=== PATIENT | female | born 1995 | race Caucasian/White ===

== ENCOUNTER 2021-09-09 04:00 | Inpatient (IN) ==
[2021-09-10] MEDS ORDERED: Famotidine 20 MG/2 ML VIAL IVP PRN (04:16)
[2021-09-10] MEDS ORDERED: Metoclopramide 10 MG/2 ML VIAL IVP PRN (04:16)
[2021-09-10] MEDS ORDERED: Ringers Solution, Lactated 1,000 ML IVC SCH (04:30)
[2021-09-10] MEDS: Oxytocin 20 units/ LR 1000 mL 20 UNIT/1,000 ML BAG IVC SCH ×2 (05:01→17:33)
[2021-09-10 07:05] LABS: Basophils % 0.4 %; Eosinophils % 0.4 %; Hematocrit 40.1 % (35.3-44.9); Hemoglobin 12.8 g/dL (11.5-15.4); Immature Granulocytes % 0.4 % (0-4); Immature Platelets 24.4 % (1.1-6.1); Lymphocytes # 2.4 K/mcL (0.6-4.6); Lymphocytes % 23.6 %; Mean Corpuscular HGB Conc 31.9 g/dL (31.6-35.5); Mean Corpuscular Hemoglobin 27.8 pg (28.0-33.3); Mean Corpuscular Volume 87.2 fL (83.0-100.0); Monocytes # 0.8 K/mcL (0.0-1.3); Monocytes % 7.7 %; Neutrophils # 6.8 K/mcL (1.6-8.9); Platelet Count 162 K/mcL (140-400); Red Cell Distribution Width 14.6 % (11.5-14.5); Segmented Neutrophils % 67.5 %
[2021-09-10 07:43] LABS: Influenza A PCR Negative (Negative); Influenza B PCR Negative (Negative); Resp. Syncytial Virus PCR Negative (Negative)
[2021-09-10 08:32] LABS: SARS-CoV-2 by PCR (In House) Negative (Negative)
[2021-09-10 09:07] LABS: Alanine Aminotransferase 12 Units/L (7-52); Aspartate Amino Transferase 16 Units/L (13-39); BUN/Creatinine Ratio 23 (6-26); Blood Urea Nitrogen 14 mg/dL (6-20); Lactate Dehydrogenase 193 Units/L (140-271); Uric Acid 5.6 mg/dL (2.3-7.6); eGFR For African Americans > 60 (> 60); eGFR For Non-African Americans > 60 (> 60)
[2021-09-10 09:17] LABS: Amphetamine Screen,Urine Negative ng/mL (Cutoff=1000); Barbiturate Screen,Urine Negative ng/mL (Cutoff=200); Benzodiazepines Screen,Urine Negative ng/mL (Cutoff=200); Cannabinoid Screen,Urine Negative ng/mL (Cutoff = 50); Cocaine Screen,Urine Negative ng/mL (Cutoff= 300); Creatinine,Urine 199 mg/dL; Opiate Screen,Urine Negative ng/mL (Cutoff=300); Phencyclidine Screen,Urine Negative ng/mL (Cutoff=25); Protein/Creatinine Ratio,Urine 0.47 mg/mg (0.00-0.20)
[2021-09-10] MEDS ORDERED: EPHEDrine 50 MG/ML VIAL IVP PRN (10:20)
[2021-09-10] MEDS ORDERED: Epidural Premix (fent/bupiv) 110 ML EP SCH (10:30)
[2021-09-10] MEDS ORDERED: *HR* Labetalol 20 MG/4 ML SYRINGE IVP STA ×2 (17:25→18:05)
[2021-09-10] MEDS ORDERED: Promethazine Syrup 6.25 MG/5 ML PO PRN (17:55)
[2021-09-10] MEDS ORDERED: Measles/Mumps/Rubella Vacc 0.5 ML VIAL SQ PRN (17:55)
[2021-09-10] MEDS ORDERED: Oxytocin 20 units/ LR 1000 mL 20 UNIT/1,000 ML BAG IVC SCH (17:55)
[2021-09-10] MEDS ORDERED: Benzocaine/Menthol 56 GM AEROSOL SPRAY TP PRN (17:55)
[2021-09-10] MEDS ORDERED: Ondansetron ODT 4 MG TAB.RAPDIS SL PRN (17:55)
[2021-09-10] MEDS ORDERED: Lanolin 7 G OINT...G. TP PRN (17:55)
[2021-09-10] MEDS ORDERED: Rho Immune Globulin 1,500 UNIT SYRINGE IM PRN (17:55)
[2021-09-10] MEDS ORDERED: Oxytocin 20 units/ LR 1000 mL 20 UNIT/1,000 ML BAG IVC ONE (17:55)
[2021-09-10] MEDS: Ibuprofen 600 MG TABLET PO SCH ×2 (18:11→23:52)
[2021-09-10] MEDS ORDERED: Calcium Gluconate 1,000 MG/10 ML VIAL IVP PRN (18:53)
[2021-09-10] MEDS: Magnesium Sulf 20 gm/SW 500mL 20 GM/500 ML IV.SOLN IVC SCH (19:47)
[2021-09-10] MEDS: Acetaminophen 325 MG TABLET PO SCH (20:52)
[2021-09-11] MEDS: Acetaminophen 325 MG TABLET PO SCH ×3 (02:45→19:35)
[2021-09-11] MEDS: Magnesium Sulf 20 gm/SW 500mL 20 GM/500 ML IV.SOLN IVC SCH ×2 (05:38→15:47)
[2021-09-11] MEDS: Ibuprofen 600 MG TABLET PO SCH ×3 (05:38→19:35)
[2021-09-11 06:11] LABS: Basophils % 0.3 %; Eosinophils % 0.4 %; Red Blood Count 4.29 M/mcL (3.82-4.97); Red Cell Distribution Width 14.6 % (11.5-14.5)
[2021-09-11 06:13] LABS: Immature Granulocytes % 0.4 % (0-4); Immature Platelets 19.4 % (1.1-6.1); Lymphocytes # 2.1 K/mcL (0.6-4.6); Lymphocytes % 18.5 %; Mean Corpuscular HGB Conc 32.4 g/dL (31.6-35.5); Mean Corpuscular Volume 86.2 fL (83.0-100.0); Mean Platelet Volume 13.9 fL (9.4-12.4); Monocytes # 0.7 K/mcL (0.0-1.3); Monocytes % 6.2 %; Neutrophils # 8.3 K/mcL (1.6-8.9); Platelet Count 145 K/mcL (140-400); Segmented Neutrophils % 74.2 %; White Blood Count 11.2 K/mcL (4.3-11.1)
[2021-09-11 06:29] LABS: Alanine Aminotransferase 11 Units/L (7-52); Aspartate Amino Transferase 18 Units/L (13-39); BUN/Creatinine Ratio 14 (6-26); Blood Urea Nitrogen 10 mg/dL (6-20); Lactate Dehydrogenase 206 Units/L (140-271); Uric Acid 5.9 mg/dL (2.3-7.6); eGFR For African Americans > 60 (> 60); eGFR For Non-African Americans > 60 (> 60)
[2021-09-11] MEDS: Prenatal Vit/FA 1 EACH TABLET PO SCH (09:27)
[2021-09-12] MEDS: Ibuprofen 600 MG TABLET PO SCH (04:31)
[2021-09-12] MEDS: Prenatal Vit/FA 1 EACH TABLET PO SCH (07:36)
[2021-09-12] MEDS ORDERED: Ketorolac 30 MG/ML VIAL IVP ONE (09:31)
[2021-09-12] MEDS ORDERED: *HR* Acetaminophen w/Cod 300-30 mg 1 TAB TABLET PO PRN (09:32)
[2021-09-12] MEDS ORDERED: NIFEdipine XL (24 HR) 30 MG TAB.ER.24 PO SCH (09:45)
[2021-09-12] MEDS: Acetaminophen 325 MG TABLET PO SCH ×2 (10:12→22:38)
[2021-09-12] MEDS ORDERED: NIFEdipine XL (24 HR) 30 MG TAB.ER.24 PO ONE ×2 (19:00→19:07)
[2021-09-12] MEDS ORDERED: *HR* Labetalol 20 MG/4 ML SYRINGE IVP ONE (21:47)
[2021-09-13 08:30] VITALS: PULSE 98; TEMP 98.1; O2SAT 100
[2021-09-13] MEDS: Acetaminophen 325 MG TABLET PO SCH (08:56)
[2021-09-13] MEDS: Prenatal Vit/FA 1 EACH TABLET PO SCH (08:56)
[2021-09-13] MEDS ORDERED: NIFEdipine XL (24 HR) 60 MG TAB.ER.24 PO SCH (09:00)
[2021-09-13 10:23] VITALS: BP 154/90
== END 2021-09-13 11:44 | disposition home or self-care (01) | DRG 560 ==
LOC: 1NENULAB 09-10 03:55 → 1NENUOBS 09-10 20:09
PROVIDERS: ADMIT Student in an Organized Health Care Education/Training Program; ATTEND Student in an Organized Health Care Education/Training Program